=== PATIENT | female | born 1945 | race Caucasian/White ===

== ENCOUNTER 2021-08-22 10:38 | Observation (INO) ==
[2021-08-22] MEDS ORDERED: Aspirin 81 MG TAB.CHEW PO ONE (10:44)
[2021-08-22] MEDS ORDERED: 0.9 % Sodium Chloride 1,000 ML ONE (10:51)
[2021-08-22] MEDS: 0.9 % Sodium Chloride 1,000 ML IVC SCH ×2 (10:59→11:01)
[2021-08-22] MEDS ORDERED: DilTIAZem 50 MG/50 ML IV.SOLN IVC SCH (11:00)
[2021-08-22 11:02] LABS: Basophils # 0.1 K/mcL (0.0-0.2); Basophils % 0.5 %; Eosinophils # 0.1 K/mcL (0.0-0.6); Eosinophils % 0.9 %; Hematocrit 32.7 % (35.3-44.9); Hemoglobin 10.4 g/dL (11.5-15.4); Immature Granulocytes % 0.3 % (0-4); Lymphocytes # 2.1 K/mcL (0.6-4.6); Lymphocytes % 19.6 %; Mean Corpuscular HGB Conc 31.8 g/dL (31.6-35.5); Mean Corpuscular Hemoglobin 30.7 pg (28.0-33.3); Mean Corpuscular Volume 96.5 fL (83.0-100.0); Mean Platelet Volume 9.2 fL (9.4-12.4); Monocytes # 1.2 K/mcL (0.0-1.3); Monocytes % 11.1 %; Neutrophils # 7.1 K/mcL (1.6-8.9); Platelet Count 443 K/mcL (140-400); Red Blood Count 3.39 M/mcL (3.82-4.97); Red Cell Distribution Width 15.7 % (11.5-14.5); Segmented Neutrophils % 67.6 %; White Blood Count 10.5 K/mcL (4.3-11.1)
[2021-08-22 11:12] LABS: INR 1.3; Prothrombin Time 14.7 Seconds (9.4-12.1)
[2021-08-22 11:14] LABS: Activated Partial Thrombo Time 39.2 Seconds (26.0-36.0)
[2021-08-22 11:21] LABS: BUN/Creatinine Ratio 33 (6-26); Blood Urea Nitrogen 31 mg/dL (8-23); Calcium 10.4 mg/dL (8.6-10.3); Carbon Dioxide 37 mEq/L (23-29); Chloride 89 mEq/L (98-107); Glucose 138 mg/dL (70-105); Osmolality,Calculated 285 (280-300); Potassium 2.6 mEq/L (3.5-5.1); Sodium 133 mEq/L (136-145); eGFR For African Americans > 60 (> 60); eGFR For Non-African Americans 57 (> 60)
[2021-08-22 11:22] LABS: Troponin I < 0.03 ng/mL (< 0.04)
[2021-08-22 12:04] LABS: Bilirubin,Urine Negative (Negative); Blood,Urine Trace-intact (Negative); Clarity,Urine Clear (Clear); Color,Urine Yellow (Yellow); Glucose,Urine (UA) 100 mg/dL (Normal); Ketones,Urine Negative (Negative); Leukocyte Esterase,Urine Negative (Negative); Nitrite,Urine Positive (Negative); PH,Urine 5.5 pH Units (5.0-8.0); Protein,Urine 30 mg/dL (Neg-Trace)
[2021-08-22 12:14] LABS: Bacteria,Urine Few per hpf (None-Few); Hyaline Casts,Urine Moderate per lpf (None Seen); Squamous Epithelial Cell,Urine Moderate per hpf (None-Few)
[2021-08-22] MEDS ORDERED: Naloxone 0.4 MG/ML INJ IVP PRN (13:17)
[2021-08-22] MEDS ORDERED: Ondansetron 4 MG/2 ML VIAL IVP PRN (13:17)
[2021-08-22] MEDS ORDERED: Acetaminophen 325 MG TABLET PO PRN (13:17)
[2021-08-22] MEDS ORDERED: Clindamycin 600 MG/50 ML 600 MG/50 ML IV.SOLN IVPB ONE (13:21)
[2021-08-22] MEDS ORDERED: 0.9 % Sodium Chloride 1,000 ML IVC SCH (13:30)
[2021-08-22] MEDS ORDERED: cefTRIAXone 2,000 MG in 0.9 % Sodium Chloride Mini Bag 100 ML IVPB SCH (14:00)
[2021-08-22] MEDS ORDERED: Simethicone 80 MG TAB.CHEW PO PRN (17:42)
[2021-08-22] MEDS ORDERED: *HR* Enoxaparin 60 MG/0.6 ML SYRINGE SQ SCH (18:00)
[2021-08-22] MEDS ORDERED: Mirtazapine 15 MG TABLET PO SCH (21:00)
[2021-08-22] MEDS: cilostazoL 100 MG TABLET PO SCH (21:13)
[2021-08-22] MEDS: Apixaban 5 MG TABLET PO SCH (21:14)
[2021-08-23 07:51] LABS: Hematocrit 27.3 % (35.3-44.9); Hemoglobin 8.6 g/dL (11.5-15.4); Mean Corpuscular HGB Conc 31.5 g/dL (31.6-35.5); Mean Corpuscular Hemoglobin 30.7 pg (28.0-33.3); Mean Corpuscular Volume 97.5 fL (83.0-100.0); Mean Platelet Volume 9.4 fL (9.4-12.4); Platelet Count 370 K/mcL (140-400); Red Cell Distribution Width 15.8 % (11.5-14.5); White Blood Count 9.3 K/mcL (4.3-11.1)
[2021-08-23] MEDS: Apixaban 5 MG TABLET PO SCH (07:51)
[2021-08-23] MEDS: cilostazoL 100 MG TABLET PO SCH (07:52)
[2021-08-23 08:09] LABS: BUN/Creatinine Ratio 31 (6-26); Blood Urea Nitrogen 25 mg/dL (8-23); Calcium 8.9 mg/dL (8.6-10.3); Carbon Dioxide 35 mEq/L (23-29); Chloride 98 mEq/L (98-107); Glucose 81 mg/dL (70-105); Osmolality,Calculated 289 (280-300); Sodium 138 mEq/L (136-145); eGFR For African Americans > 60 (> 60); eGFR For Non-African Americans > 60 (> 60)
[2021-08-23] MEDS ORDERED: Multivit/Ca/Min/Fe/FA 1 TAB TABLET PO SCH (09:00)
[2021-08-23] MEDS ORDERED: Furosemide 40 MG TABLET PO SCH (09:00)
[2021-08-23] MEDS ORDERED: Budesonide/Formoterol 160/4.5 1 PUFF INH IH SCH (10:00)
[2021-08-23] MEDS ORDERED: Tiotropium 10 INH DOSE IH SCH (10:00)
[2021-08-23 10:22] VITALS: BP 73/44; PULSE 82; TEMP 97.7; O2SAT 91
[2021-08-23 18:19] VITALS: RESP 18
== END 2021-08-23 12:35 | disposition home or self-care (01) ==
LOC: EMEROOPIK 10:38 → INPPIK 10:38
PROVIDERS: ADMIT Family Medicine; ATTEND Family Medicine

== ENCOUNTER 2021-10-21 12:24 | Observation (INO) ==
[2021-10-21] MEDS ORDERED: levoFLOXacin 750 MG/150 ML 750 MG/150 ML BAG IVPB ONE (12:38)
[2021-10-21] MEDS ORDERED: methylPREDNISolone 125 MG/2 ML VIAL IVP ONE (12:38)
[2021-10-21] MEDS ORDERED: Ipratropium/Albuterol Neb 3 ML IH ONE (12:38)
[2021-10-21 12:59] LABS: Basophils % 0.4 %; Eosinophils # 0.1 K/mcL (0.0-0.6); Eosinophils % 0.6 %; Hemoglobin 7.9 g/dL (11.5-15.4); Immature Granulocytes % 0.6 % (0-4); Lymphocytes # 1.1 K/mcL (0.6-4.6); Mean Corpuscular HGB Conc 30.4 g/dL (31.6-35.5); Mean Corpuscular Hemoglobin 30.5 pg (28.0-33.3); Mean Corpuscular Volume 100.4 fL (83.0-100.0); Mean Platelet Volume 8.8 fL (9.4-12.4); Monocytes # 1.1 K/mcL (0.0-1.3); Neutrophils # 8.5 K/mcL (1.6-8.9); Platelet Count 444 K/mcL (140-400); Red Blood Count 2.59 M/mcL (3.82-4.97); Red Cell Distribution Width 14.6 % (11.5-14.5); Segmented Neutrophils % 78.4 %; White Blood Count 10.9 K/mcL (4.3-11.1)
[2021-10-21 13:18] LABS: Clarity,Urine Clear (Clear); Color,Urine Orange (Yellow)
[2021-10-21] MEDS ORDERED: Ondansetron 4 MG/2 ML VIAL IVP ONE (13:18)
[2021-10-21 13:19] LABS: Alanine Aminotransferase 14 Units/L (7-52); Albumin 3.2 g/dL (3.5-5.7); Albumin/Globulin Ratio 0.8 (1.1-2.2); Alkaline Phosphatase 74 Units/L (34-104); Aspartate Amino Transferase 16 Units/L (13-39); BUN/Creatinine Ratio 14 (6-26); Bilirubin,Direct 0.1 mg/dL (0.0-0.2); Bilirubin,Indirect 0.5 mg/dL (0.0-1.0); Bilirubin,Total 0.6 mg/dL (0.3-1.0); Blood Urea Nitrogen 13 mg/dL (8-23); Calcium 9.6 mg/dL (8.6-10.3); Carbon Dioxide 35 mEq/L (23-29); Chloride 92 mEq/L (98-107); Globulin 3.8 g/dL (2.4-3.5); Glucose 94 mg/dL (70-105); Osmolality,Calculated 280 (280-300); Potassium 3.5 mEq/L (3.5-5.1); Sodium 135 mEq/L (136-145); Troponin I < 0.03 ng/mL (< 0.04); eGFR For African Americans > 60 (> 60); eGFR For Non-African Americans > 60 (> 60)
[2021-10-21 13:27] LABS: Bacteria,Urine Few per hpf (None-Few); Hyaline Casts,Urine Few per lpf (None Seen); RBC,Urine 0-3 per hpf (0-3); Squamous Epithelial Cell,Urine Few per hpf (None-Few); WBC,Urine 0-3 per hpf (0-3)
[2021-10-21] MEDS ORDERED: Acetaminophen 325 MG TABLET PO PRN (16:24)
[2021-10-21] MEDS ORDERED: Ondansetron 4 MG/2 ML VIAL IVP PRN (16:24)
[2021-10-21] MEDS ORDERED: Mag Hydrox/Al Hydrox/Simeth 30 ML UDC PO PRN (16:24)
[2021-10-21] MEDS ORDERED: MOM Conc 10 ML UD.LIQ PO PRN (16:24)
[2021-10-21] MEDS ORDERED: Naloxone 0.4 MG/ML INJ IVP PRN (16:24)
[2021-10-21] MEDS ORDERED: Ipratropium/Albuterol Neb 3 ML IH SCH (16:45)
[2021-10-21 16:53] VITALS: TEMP 97.8
[2021-10-21] MEDS ORDERED: MethylPREDNISolone 40 MG/ML VIAL IVP ONE (17:56)
[2021-10-21] MEDS ORDERED: Isovue-370 500 ML BOTTLE IVP ONE (17:58)
[2021-10-21] MEDS ORDERED: *HR* Heparin 5,000 UNIT/ML VIAL IVP ONE (18:31)
[2021-10-21] MEDS ORDERED: *HR* Heparin 5,000 UNIT/ML VIAL IVP PRN ×2 (18:31)
[2021-10-21] MEDS ORDERED: *HR* Metoprolol 5 MG/5 ML VIAL IVP ONE ×2 (18:36→18:39)
[2021-10-21] MEDS ORDERED: Heparin 25,000UNIT/250ML 1/2NS 25,000 UNIT/250 ML IV.SOLN IVC SCH ×2 (18:45)
[2021-10-21 18:56] VITALS: RESP 28
[2021-10-21] MEDS ORDERED: 0.9 % Sodium Chloride 1,000 ML ONE ×2 (19:02→20:28)
[2021-10-21] MEDS ORDERED: 0.9 % Sodium Chloride 500 ML IVC ONE (19:06)
[2021-10-21 19:10] LABS: Adenovirus Not Detected (Not Detect); Bordetella Pertussis Not Detected (Not Detect); Chlamydophila pneumoniae Not Detected (Not Detect); Coronavirus 229E DETECTED (Not Detect); Coronavirus HKU1 Not Detected (Not Detect); Coronavirus NL63 Not Detected (Not Detect); Coronavirus OC43 Not Detected (Not Detect); Human Metapneumovirus Not Detected (Not Detect); Human Rhinovirus/Enterovirus Not Detected (Not Detect); Influenza A Subtype 2009 H1 Not Detected (Not Detect); Influenza B Not Detected (Not Detect); Mycoplasma pneumoniae Not Detected (Not Detect); Parainfluenza Virus 1 Not Detected (Not Detect); Parainfluenza Virus 2 Not Detected (Not Detect); Parainfluenza Virus 3 Not Detected (Not Detect); Parainfluenza Virus 4 Not Detected (Not Detect); Respiratory Syncytial Virus Not Detected (Not Detect); SARS-CoV-2 Not Detected (Not Detect)
[2021-10-21 19:12] LABS: ABG Base Excess 7 mEq/L (-2 to 3); ABG HCO3 34 mEq/L (21-27); ABG Oxygen Saturation 94 % (95-98); ABG PCO2 62 mmHg (35-45); ABG PH 7.35 pH Units (7.32-7.45); ABG PO2 78 mmHg (85-104); ABG TCO2 36 mEq/L (20-26)
[2021-10-21 19:25] LABS: INR 1.6; Prothrombin Time 17.4 Seconds (9.4-12.1)
[2021-10-21 19:27] VITALS: O2SAT 96
[2021-10-21 19:31] LABS: Heparin anti-factor XA UFH 1.78 IU/mL (0.30-0.70)
[2021-10-21 19:36] LABS: Hemoglobin 7.6 g/dL (11.5-15.4); Mean Corpuscular HGB Conc 30.4 g/dL (31.6-35.5); Mean Corpuscular Hemoglobin 30.4 pg (28.0-33.3); Mean Platelet Volume 9.1 fL (9.4-12.4); Platelet Count 443 K/mcL (140-400); Red Cell Distribution Width 14.6 % (11.5-14.5); White Blood Count 8.7 K/mcL (4.3-11.1)
[2021-10-21] MEDS ORDERED: *HR* Digoxin 0.5 MG/2 ML AMPUL IVP ONE (20:01)
[2021-10-21] MEDS ORDERED: 0.9 % Sodium Chloride 1,000 ML IVC ONE (20:26)
[2021-10-21 20:58] VITALS: BP 114/66; PULSE 149
[2021-10-21] MEDS ORDERED: Apixaban 5 MG TABLET PO SCH (21:00)
[2021-10-21] MEDS ORDERED: DilTIAZem 125 MG in 0.9 % Sodium Chloride 50 MG/100 ML IV.SOLN IVC SCH (21:00)
[2021-10-21] MEDS ORDERED: [UNRECOGNIZED DRUG - OTHER] PO SCH (21:00)
[2021-10-21] MEDS ORDERED: CALTRATE PO SCH (21:00)
[2021-10-21] MEDS ORDERED: Norepinephrine 4 MG in 0.9 % Sodium Chloride 250 ML IVC SCH (21:00)
[2021-10-22] MEDS ORDERED: MethylPREDNISolone 40 MG/ML VIAL IVP SCH
[2021-10-22] MEDS ORDERED: NORETHINDRONE ACETATE PO SCH (09:00)
[2021-10-22] MEDS ORDERED: ESTRADIOL PO SCH (09:00)
[2021-10-22] MEDS ORDERED: Multivit/Ca/Min/Fe/FA 1 TAB TABLET PO SCH (09:00)
[2021-10-22] MEDS ORDERED: Budesonide/Formoterol 160/4.5 1 PUFF INH IH SCH (09:00)
[2021-10-22] MEDS ORDERED: Furosemide 20 MG TABLET PO SCH (09:00)
[2021-10-22] MEDS ORDERED: Loratadine 10 MG TABLET PO SCH (09:00)
== END 2021-10-21 21:20 | disposition short-term general hospital (02) ==
LOC: EMEROOPIK 12:24 → INPPIK 12:24
PROVIDERS: ADMIT Internal Medicine; ATTEND Internal Medicine